=== PATIENT | female | born 1940 | race Caucasian/White ===

== ENCOUNTER 2022-07-28 12:21 | Outpatient (CLI) | payer MEDICARE | END 2022-07-28 12:22 | disposition home or self-care (01) | LOC: CSHCP 12:21 | PROVIDERS: ATTEND Physician Assistant | DX: R91.1 Solitary pulmonary nodule (principal); C54.1 Malignant neoplasm of endometrium; R94.2 Abnormal results of pulmonary function studies | CPT/HCPCS: 94010; 94726; 94729; 94760 ==